=== PATIENT | male | born 1990 | race American Indian/Alaskan Native ===

== ENCOUNTER 2016-08-03 22:36 | Emergency (ER) | payer OTHER ==
[2016-08-03 22:45] VITALS: BP 126/70
[2016-08-03 23:49] LABS: Basophils % (Auto) 0.3 % (0.0-1.8); Eosinophils % (Auto) 0.8 % (0.0-4.3); Mean Corpuscular HGB Conc 30 % (32-34); Mean Corpuscular Volume 76 fl (84-94); Platelet Count 139 K/mm3 (140-440); Red Blood Count 5.22 M/mm3 (3.65-5.03); Red Cell Distribution Width 14.2 % (13.2-15.2)
[2016-08-03 23:51] LABS: Hematocrit 39.6 % (35.5-45.6); Hemoglobin 11.9 gm/dl (11.8-15.2)
[2016-08-03 23:52] LABS: Mean Corpuscular Hemoglobin 23 pg (28-32)
[2016-08-04 00:06] LABS: Amylase 87 units/L (27-131); Anion Gap 15 mmol/L; BUN/Creatinine Ratio 23.33; Blood Urea Nitrogen 14 mg/dL (9-20); Calcium 8.2 mg/dL (8.4-10.2); Carbon Dioxide 27 mmol/L (22-30); Chloride 101.2 mmol/L (98-107); Glucose 82 mg/dL (75-100); Lipase 14 units/L (13-60); Potassium 3.7 mmol/L (3.6-5.0); Sodium 139 mmol/L (137-145)
[2016-08-04] MEDS ORDERED: ZOFRAN ODT PO ONE (00:22)
--- NOTE | 2016-08-04 00:24 | Emergency Department Report ---
HPI - General Chief Complaint: Headache Time Seen by Provider: 08/03/16 23:12 - HPI HPI: 26-year-old male presents today complaining of sore throat 5 days, headache 3 days and nausea 2 days. Positive for history of headaches and states that this is milder than usual. He tried ibuprofen with relief. Denies any head injury or trauma. Denies cough, cold symptoms, chest pain or shortness of breath. Denies any vomiting. Patient states that he had abdominal pain earlier today but no pain at this time. Patient was also like HIV testing. ED Past Medical Hx - Past Medical History Previous Medical History?: No - Surgical History Past Surgical History?: No - Social History Smoking Status: Current Every Day Smoker Substance Use Type: Alcohol - Medications Home Medications: Home Medications Medication Instructions Recorded Confirmed Last Taken Type Ondansetron [Zofran Odt] 4 mg PO Q8HR #20 tab.rapdis 08/04/16 Unknown Rx ED Review of Systems ROS: Stated complaint: NAUSEA/HEADACHE/SORE THROAT Other details as noted in HPI Constitutional: denies: chills, fever, malaise Eyes: denies: eye pain ENT: throat pain. denies: ear pain, congestion Respiratory: denies: cough, shortness of breath, wheezing Cardiovascular: denies: chest pain, palpitations Endocrine: no symptoms reported Gastrointestinal: nausea. denies: abdominal pain, vomiting, diarrhea Skin: denies: rash Neurological: headache. denies: weakness Physical Exam - Physical Exam Vital Signs: Vital Signs 08/03/16 08/03/16 22:40 23:38 Temperature 98.3 F Pulse Rate 78 Respiratory 18 18 Rate Blood Pressure 126/70 O2 Sat by Pulse 100 Oximetry Physical Exam: GENERAL: The patient is well-developed and well-nourished. Patient is in NAD. HEAD: Normocephalic. Atraumatic. EYES: Extraocular motions are intact, PERRL. EARS: External auditory canals and tympanic membranes clear; hearing grossly intact. NOSE: Normal nasal mucosa with no nasal discharge. THROAT: No erythema, swelling or exudates. NECK: Supple, nontender, without lymphadenopathy. No meningitic signs are noted. CHEST/LUNGS: Clear to auscultation throughout. HEART/CARDIOVASCULAR: Regular rate and rhythm. No murmurs, rubs or gallops. ABDOMEN: Abdomen is soft, nontender. Bowel sounds normoactive. No guarding or rebound tenderness. EXTREMITIES: Peripheral pulses intact. Capillary refill less than 2 seconds. NEURO: Alert and oriented x 3. Normal gait. CN II-XII intact. Symmetrical strength and sensation. Negative Romberg or pronator drift. GCS score of 15. ED Course Vital Signs 08/03/16 08/03/16 22:40 23:38 Temperature 98.3 F Pulse Rate 78 Respiratory 18 18 Rate Blood Pressure 126/70 O2 Sat by Pulse 100 Oximetry ED Medical Decision Making - Lab Data Result diagrams: 08/03/16 23:37 08/03/16 23:37 Vital Signs 08/03/16 08/03/16 22:40 23:38 Temperature 98.3 F Pulse Rate 78 Respiratory 18 18 Rate Blood Pressure 126/70 O2 Sat by Pulse 100 Oximetry Lab Results 08/03/16 08/03/16 08/03/16 Range/Units 23:37 23:37 23:37 WBC 4.0 L (4.5-11.0) K/mm3 RBC 5.22 H (3.65-5.03) M/mm3 Hgb 11.9 (11.8-15.2) gm/dl Hct 39.6 (35.5-45.6) % MCV 76 L (84-94) fl MCH 23 L (28-32) pg MCHC 30 L (32-34) % RDW 14.2 (13.2-15.2) % Plt Count 139 L (140-440) K/mm3 Lymph % (Auto) 20.7 (13.4-35.0) % [place] % (Auto) 12.1 H (0.0-7.3) % Eos % (Auto) 0.8 (0.0-4.3) % Baso % (Auto) 0.3 (0.0-1.8) % Lymph # 0.8 L (1.2-5.4) K/mm3 [place] # 0.5 (0.0-0.8) K/mm3 Eos # 0.0 (0.0-0.4) K/mm3 Baso # 0.0 (0.0-0.1) K/mm3 Seg Neutrophils % 66.1 (40.0-70.0) % Seg Neutrophils # 2.7 (1.8-7.7) K/mm3 Sodium 139 (137-145) mmol/L Potassium 3.7 (3.6-5.0) mmol/L Chloride 101.2 (98-107) mmol/L Carbon Dioxide 27 (22-30) mmol/L Anion Gap 15 mmol/L BUN 14 (9-20) mg/dL Creatinine 0.6 L (0.8-1.5) mg/dL Estimated GFR > 60 ml/min BUN/Creatinine Ratio 23.33 % Glucose 82 (75-100) mg/dL Calcium 8.2 L (8.4-10.2) mg/dL Amylase 87 (27-131) units/L Lipase 14 (13-60) units/L Monoscreen Negative (Negative) - Medical Decision Making 26-year-old male presents today with sore throat, headache, nausea. His lab results were discussed with Dr. Guy. Patient is in no acute distress at this time. Informed patient that he needs to follow up with the health clinic for HIV testing if he would like. Patient expressed understanding. He will be discharged home and is encouraged to follow up with a primary care provider. He will be sent home on Zofran and is encouraged to return to the emergency room for any worsening symptoms. Critical care attestation.: If time is entered above; I have spent that time in minutes in the direct care of this critically ill patient, excluding procedure time. ED Disposition Clinical Impression: Nausea Headache Qualifiers: Headache type: unspecified Headache chronicity pattern: acute headache Intractability: not intractable Qualified Code(s): R51 - Headache Pharyngitis Qualifiers: Pharyngitis/tonsillitis etiology: unspecified etiology Qualified Code(s): J02.9 - Acute pharyngitis, unspecified Disposition: DISCHARGED TO HOME OR SELFCARE Is pt being admited?: No Does the pt Need Aspirin: No Condition: Stable Instructions: Acute Nausea and Vomiting (ED), Acute Headache (ED) Additional Instructions: Follow-up with primary care provider. Return to the emergency department if symptoms worsen. Prescriptions: Ondansetron [Zofran Odt] 4 mg PO Q8HR #20 tab.rapdis Referrals: PRIMARY CARE, [Primary Care Provider] - 3-5 Days [facility] [Outside] - 3-5 Days Forms: Work/School Release Form(ED), Accompanied Note Time of Disposition: 01:03
== END 2016-08-04 01:17 | disposition home or self-care (01) ==
LOC: ED 22:36
DX: J02.9 Acute pharyngitis, unspecified (principal); R51 Headache; R11.0 Nausea; F17.200 Nicotine dependence, unspecified, uncomplicated
CPT/HCPCS: 36415; 80048; 82150; 83690; 85025; 86308; 87116; 87430; 99283; Q0162

== ENCOUNTER 2019-06-22 07:06 | Emergency (ER) | payer OTHER ==
[2019-06-22 07:47] VITALS: BP 121/79
--- NOTE | 2019-06-22 08:41 | XRay Report ---
CHEST 2 VIEWS INDICATION: cough. COMPARISON: None. FINDINGS: Support devices: None. Heart: Within normal limits. Pulmonary vasculature: Normal. Lungs/pleura: No acute air space or interstitial disease. No pneumothorax. Additional findings: None. IMPRESSION: 1. Normal chest. Signer Name: Wu Soares MD Signed: 06/22/2019 8:37 AM Workstation Name: [id number]
--- NOTE | 2019-06-22 08:56 | Emergency Department Report ---
Minor Respiratory - HPI Chief Complaint: Upper Respiratory Infection Stated Complaint: COUGH FEVER Time Seen by Provider: 06/22/19 08:46 Duration: 3 Days Pain Location: Nose Severity: mild Minor Respiratory: Yes Rhinorrhea, Yes Able to Tolerate Fluids, Yes Cough, Yes Fever (Subjective), No Sore Throat, No Ear Pain, No Sick Contacts, No Hemoptysis, No Chest Pain, No Shortness of Breath Other History: 29-year-old healthy male presenting with complaints of cough, sinus drainage, runny nose, subjective fever without shortness of breath for the past 3 days. No known contacts that are ill, no recent travel. ED Review of Systems ROS: Stated complaint: COUGH FEVER Other details as noted in HPI Comment: All other systems reviewed and negative ENT: as per HPI Respiratory: see HPI ED Past Medical Hx - Past Medical History Previous Medical History?: No - Surgical History Past Surgical History?: No - Social History Smoking Status: Current Every Day Smoker Substance Use Type: None - Medications Home Medications: Home Medications Medication Instructions Recorded Confirmed Last Taken Type Ondansetron [Zofran Odt] 4 mg PO Q8HR #20 tab.rapdis 08/04/16 Unknown Rx Minor Respiratory Exam - Exam General: Vital signs noted. No distress. Alert and acting appropriately. HEENT: Yes Moist Mucous Membranes, No Pharyngeal Erythema, No Pharyngeal Exudates, No Rhinorrhea, No Conjuctival Injection, No Frontal Tenderness, No Maxillary Tenderness Neck: Yes Supple, No Adenopathy Lungs: Yes Good Air Exchange, No Wheezes, No Ronchi, No Stridor, No Cough, No Labored Respirations, No Retractions, No Use of Accessory Muscles, No Other Abnormal Lung Sounds Heart: Yes Regular, No Murmur Skin: No Rash, No Edema Neurologic: Alert and oriented, no deficits. Musculoskeletal: Unremarkable. ED Course Vital Signs 06/22/19 07:44 Temperature 98.1 F Pulse Rate 77 Respiratory 18 Rate Blood Pressure 121/79 O2 Sat by Pulse 99 Oximetry ED Medical Decision Making - Radiology Data Negative two-view chest - Medical Decision Making Patient was symptoms suggestive of viral respiratory infection. Well-appearing, clear lungs. no known exposure to COVID 19 however it is felt unlikely that this is present. Patient advised that testing for this is unavailable at the present time and he falls into a low risk category however he has been advised that he should self quarantine. Follow-up PCP. - Differential Diagnosis Viral syndrome, allergies, bronchitis, pneumonia Critical care attestation.: If time is entered above; I have spent that time in minutes in the direct care of this critically ill patient, excluding procedure time. ED Disposition Clinical Impression: Viral respiratory infection Disposition: DC-01 TO HOME OR SELFCARE Is pt being admited?: No Condition: Good Instructions: Upper Respiratory Infection (ED) Referrals: LENNOX HAMILTON MD [Primary Care Provider] - 3-5 Days Time of Disposition: 08:56
== END 2019-06-22 09:02 | disposition home or self-care (01) ==
LOC: ED 07:06
DX: J98.8 Other specified respiratory disorders (principal); B97.89 Other viral agents as the cause of diseases classified elsewhere; F17.200 Nicotine dependence, unspecified, uncomplicated; Z79.899 Other long term (current) drug therapy
CPT/HCPCS: 71046; 99283